=== PATIENT | male | born 1960 | race African-American/Black ===

== ENCOUNTER → 2024-07-20 09:17 | Outpatient (BNVA) | payer MEDICAID, SELFPAY | PROVIDERS: PCP Family Medicine; Visit Provider Surgery | DX: Z12.11 Encounter for screening for malignant neoplasm of colon (principal) | CPT/HCPCS: 99024; 99203 ==

== ENCOUNTER 2024-08-09 09:05 | Day surgery (SDC) | payer MEDICARE, MEDICAID, SELFPAY ==
[2024-08-09 09:21] VITALS: BP 137/77; PULSE 71; RESP 16; TEMP 36.8; O2SAT 99; BMI 21.7
[2024-08-09] MEDS: sodium chloride 0.9% 500 ML 15 ML IV (09:31)
--- NOTE | 2024-08-09 09:47 | P.HPUD_ITS ---
Surgery/Procedure H&P Update DATE OF PROCEDURE: August 09, 2024 DATE H&P PERFORMED: 07/20/24 H&P UPDATE INFORMATION: I have reviewed H&P completed within last 30 days, I have examined patient prior to procedure, No changes to prior documentation and H&P is in [facility] [facility] on date indicated PLANNED PROCEDURE: Operation Date: 08/09/24 10:20 Proposed Procedures p Colonoscopy - 75685, G0121, Z12.11(Not Applicable) - Chong Jean MD
--- NOTE | 2024-08-09 10:22 | ANES.PREANE2 ---
Pre-Anesthetic Assessment Height/Weight: Height 1.85 m Weight 74.843 kg Temp Pulse Resp BP Pulse Ox O2 Del Method 98.3 F 71 16 137/77 99 Room Air 08/09/24 09:21 08/09/24 09:21 08/09/24 09:21 08/09/24 09:21 08/09/24 09:21 08/09/24 09:21 Preop Diagnosis: screening Operation Date: 08/09/24 10:20 Proposed Procedures p Colonoscopy - 96476, G0121, Z12.11(Not Applicable) - Chong Jean MD Familial anesthetic complications: none Was Beta Hema taken within 24 hours: N/A Was Clonidine taken within 24 hours: N/A Last intake: Intake Last Liquid Date 08/08/24 Last Liquid Time 21:00 Last Solid Date 08/07/24 Last Solid Time 20:00 Social No alcohol and No tobacco Exam alert, oriented x 3, clear to auscultation bilaterally and regular rate & rhythm Airway Submandibular: within normal limits Cervical ROM: within normal limits Dentition: partials History/ROS No significant history except as noted and No significant complaints Pulmonary None reported CV/HEM None reported None reported Hepatic None reported GI None reported Metabolic None reported Musc/skel None reported Neuropsych None reported Anesthetic Plan ASA status: 2 Anesthesia: MAC Risk of > 500 ml blood loss (7ml/kg in children): No Medications/Allergies Home Medications Medication Instructions Recorded Confirmed Last Taken Type ondansetron 8 mg disintegrating 8 mg PO Q8H PRN nausea and 07/20/24 08/04/24 Unknown Rx tablet vomiting #3 tabs Allergies Allergy/AdvReac Type Severity Reaction Status Date / Time No Known Allergies Allergy Unverified 08/04/24 13:09 Current Medications Generic Name Dose Route Start Last Admin Trade Name Freq PRN Reason Stop Dose Admin Sodium Chloride 500 mls @ 15 mls/hr 08/09/24 09:18 08/09/24 09:31 Sodium Chloride 0.9% IV 08/10/24 09:17 15 mls/hr .Q24H PRN Administration COLONOSCOPY FLUIDS PFSH Anesthesia Family History (Updated 07/20/24 @ 09:37 by SAMUEL Watt) Father Heart failure Mother Heart failure Social History (Updated 07/20/24 @ 09:36 by Umu Harrill, CT) Smoking and tobacco/nicotine status: former use of tobacco/nicotine Alcohol intake: former Data Anesthesia Cardiac Studies: No Data to Display
[2024-08-09 11:30] VITALS: BP 95/60; PULSE 66; RESP 16; TEMP 36.1; O2SAT 98
[2024-08-09 11:49] VITALS: BP 113/69; PULSE 63; RESP 18; O2SAT 100
--- NOTE | 2024-08-10 12:07 | ANE.PACU2 ---
Inpatient post-anesthesia follow up: Airway intact: Yes Vital signs: Temperature 97.0 F Pulse Rate 63 Respiratory Rate 18 Blood Pressure 113/69 Pulse Oximetry 100 Oxygen Delivery Me thod Room Air Oxygen Flow Rate Fraction of Inspir ed Oxygen Hydration adequate: Yes Nausea and vomiting: No Pain level: 1 Mental status: Baseline
== END 2024-08-09 12:07 | disposition home or self-care (01) ==
PROVIDERS: PCP Family Medicine; Visit Provider Surgery
PROC: 0DJD8ZZ Inspection of Lower Intestinal Tract, Via Natural or Artificial Opening Endoscopic (ICD-10-PCS; CPT 45330; 2024-08-09 10:20)
DX: Z12.11 Encounter for screening for malignant neoplasm of colon (principal); Z87.891 Personal history of nicotine dependence
CPT/HCPCS: 45330; J2704; J7040

== ENCOUNTER 2024-09-15 06:52 | Day surgery (SDC) | payer MEDICARE, MEDICAID, SELFPAY ==
[2024-09-15 07:12] VITALS: BP 135/74; PULSE 83; RESP 16; TEMP 36.7; O2SAT 99
[2024-09-15] MEDS: sodium chloride 0.9% 500 ML 15 ML IV (07:22)
--- NOTE | 2024-09-15 07:32 | ANES.PREANE2 ---
Pre-Anesthetic Assessment Height/Weight: Height 6 ft 1 in Weight 164 lb Temp Pulse Resp BP Pulse Ox O2 Del Method 98.1 F 83 16 135/74 99 Room Air 09/15/24 07:12 09/15/24 07:12 09/15/24 07:12 09/15/24 07:12 09/15/24 07:12 09/15/24 07:12 Preop Diagnosis: Screening colonoscopy Operation Date: 09/15/24 08:20 Proposed Procedures p Colonoscopy - 23251, G0121, Z12.11(Not Applicable) - Chong Jean MD Was Beta Hema taken within 24 hours: N/A Was Clonidine taken within 24 hours: N/A Last intake: Intake Last Liquid Date 09/14/24 Last Liquid Time 21:00 Last Solid Date 09/12/24 Last Solid Time 16:00 Social No alcohol and No tobacco Exam alert, oriented x 3, clear to auscultation bilaterally and regular rate & rhythm Airway Submandibular: within normal limits Cervical ROM: within normal limits Mallampati: Class II Dentition: full Comments: Comments: Few missing teeth, denies any loose Anesthetic Plan ASA status: 1 Anesthesia: MAC Other: No prior issues with anesthesia Completed bowel prep Denies any cardiac or pulmonary issues METs greater than 4 Plan for MAC anesthetic Medications/Allergies Home Medications Medication Instructions Recorded Confirmed Last Taken Type No Known Home Medications 09/13/24 09/13/24 Unknown History Allergies Allergy/AdvReac Type Severity Reaction Status Date / Time No Known Allergies Allergy Unverified 08/04/24 13:09 Current Medications Generic Name Dose Route Start Last Admin Trade Name Freq PRN Reason Stop Dose Admin Sodium Chloride 500 mls @ 15 mls/hr 09/15/24 06:58 09/15/24 07:22 Sodium Chloride 0.9% IV 09/16/24 06:57 15 mls/hr .Q24H PRN Administration COLONOSCOPY FLUIDS PFSH Anesthesia Family History (Updated 07/20/24 @ 09:37 by SAMUEL Watt) Father Heart failure Mother Heart failure Social History (Updated 07/20/24 @ 09:36 by SAMUEL Watt) Smoking and tobacco/nicotine status: former use of tobacco/nicotine Alcohol intake: former Data Anesthesia Cardiac Studies: No Data to Display
--- NOTE | 2024-09-15 07:49 | W.PM.OPSFHP ---
Same Day Surgery H&P Indication for Procedure/HPI DATE OF PROCEDURE: September 15, 2024 CHIEF COMPLAINT/INDICATIONFOR SURGICAL PROCEDURE: need for screening colonoscopy PREOP DIAGNOSIS: Screening colonoscopy PLANNED PROCEDURE: Operation Date: 09/15/24 08:20 Proposed Procedures p Colonoscopy - 33096, G0121, Z12.11(Not Applicable) - Chong Jean MD Medications/Allergies* Home Medications Medication Instructions Recorded Confirmed Type No Known Home Medications 09/13/24 09/13/24 History Allergies/Adverse Reactions Allergy/AdvReac Type Severity Reaction Status Date / Time No Known Allergies Allergy Unverified 08/04/24 13:09 Current Medications: Generic Name Dose Route Start Last Admin Trade Name Freq PRN Reason Stop Dose Admin Sodium Chloride 500 mls @ 15 mls/hr 09/15/24 06:58 09/15/24 07:22 Sodium Chloride 0.9% IV 09/16/24 06:57 15 mls/hr .Q24H PRN Administration COLONOSCOPY FLUIDS Pertinent History/Comorbid Conditions* Family History (Updated 07/20/24 @ 09:37 by SAMUEL Watt) Heart failure Father Mother Social History Smoking and tobacco/nicotine status: former use of tobacco/nicotine Alcohol intake: former Pertinent Exam Findings alert, oriented x 3 and clear to auscultation bilaterally Recommendations Surgery/Procedure today Coding Level of Care Code Acute Code for Chg Violeta
[2024-09-15 08:23] VITALS: BP 102/68; PULSE 70; RESP 16; TEMP 36.1; O2SAT 98
[2024-09-15 08:36] VITALS: BP 121/76; PULSE 70; RESP 18; O2SAT 99
--- NOTE | 2024-09-15 08:53 | ANE.PACU2 ---
Inpatient post-anesthesia follow up: Airway intact: Yes Vital signs: Temperature 97 F Pulse Rate 70 Respiratory Rate 18 Blood Pressure 121/76 Pulse Oximetry 99 Oxygen Delivery Me thod Room Air Oxygen Flow Rate Fraction of Inspir ed Oxygen Hydration adequate: Yes Nausea and vomiting: No Pain level: 2 Mental status: Baseline
== END 2024-09-15 08:53 | disposition home or self-care (01) ==
PROVIDERS: PCP Family Medicine; Visit Provider Surgery
PROC: 0DJD8ZZ Inspection of Lower Intestinal Tract, Via Natural or Artificial Opening Endoscopic (ICD-10-PCS; CPT 45378; principal; 2024-09-15 08:20)
DX: Z12.11 Encounter for screening for malignant neoplasm of colon (principal); Z87.891 Personal history of nicotine dependence
CPT/HCPCS: G0121; J2704; J7040

== ENCOUNTER → 2024-12-20 08:53 | Outpatient (BNVA) | payer MEDICARE, MEDICAID, SELFPAY | PROVIDERS: PCP Family Medicine; Visit Provider Family Medicine | DX: Z02.4 Encounter for examination for driving license (principal) | CPT/HCPCS: 81000 ==